=== PATIENT | male | born 1965 | race African-American/Black ===

== ENCOUNTER 2019-12-01 10:53 | Emergency (ER) | payer BC ==
--- OUTSIDE RECORDS SUMMARY | 2019-12-01 11:30 | XMS REPORT | Continuity of Care Document ---
:1965 Author Organization [employer] Care Team Providers Name Role Phone [employer] Unavailable Un available Problems Problem Status Onset Classification Date Comments Sourc e Date Reported HYPERCHOLESTEROLEMIA Active Condition 09/29/2012 [facility] DIABETES, TYPE II Active Condition 09/29/2012 [facility] ARM PAIN, RIGHT Active Condition 09/29/2012 F[facility]ad [facility] ALLERGIC RHINITIS Active Condition 09/29/2012 [facility] Foreskin finding Active Problem 01/13/2019 [facility] (finding) 013 migrated Group from [employer] on 11/17/14. Shoulder joint pain Active Problem 01/13/2019 [facility] (finding) 013 migrated Group from [facility] [employer] on 11/17/14. SHOULDER PAIN, RIGHT Active Condition 09/29/2012 [facility] ROTATOR CUFF TEAR Active Condition 09/29/2012 [facility] BICEPS TENDINITIS Active Condition 09/29/2012 [facility] Diabetes mellitus Active Problem 01/13/2019 Data M H Medical (disorder) migrated Group from [employer] on 11/17/14. Drug therapy finding Active Problem 01/13/2019 Medical (finding) Group Finding of body mass Active Problem 09/18/2018 Medical index (finding) Grou p Hypertensive disorder, Active Problem 01/13/2019 [facility] systemic arterial migrated Gr oup (disorder) from [facility] [employer] on 11/17/14. Medical Active Problem 01/13/2019 Medica l examinations/reports Group status (finding) Mixed hyperlipidemia Active Problem 01/13/2019 Medical (disorder) Group Obesity (disorder) Active Problem 01/13/2019 Medical Group Screening status Active Problem 01/13/2019 Medical (finding) Group Medications Medication Details Route Status Patient Ordering Order Source Instructions Provider Date Levofloxacin 500 mg = 1 tab, Active 500 MG Oral PO, Q24H, X 10 2019 Medic al Tablet day, # 10 tab, 0 Group [Levaquin] Refill(s), Pharmacy: [facility]/pharmacy #[id number] Actos 30 mg, PO, Daily, Active 0 Refill(s) 2019 Medical Group rosuvastatin 20 20 mg = 1 tab, Active 10/13/ M H mg oral tablet PO, Bedtime, # 30 2018 Medical tab, 0 Refill(s) Group pioglitazone 30 30 mg = 1 tab, Active 10/13/ M H mg oral tablet PO, Daily, 0 2018 Medi afia Refill(s) Group 3 ML Insulin 30units, SUB-Q, Active Glargine 100 Bedtime, # 6 mL, 2018 Me dical UNT/ML Pen 3 Refill(s) Group Injector [Basaglar] 24 HR 1 tab, PO, BID, 0 Active dapagliflozin 5 Refill(s) 2018 Medica l MG / Metformin Group hydrochloride 1000 MG Extended Release Oral Tablet [Xigduo] 0.5 ML SUB-Q, 0 Active dulaglutide 1.5 Refill(s) 2018 Medica l MG/ML Prefilled Group Syringe [Trulicity] MELOXICAM 15 MG 1 PO QD Active Matt TABS 2013 [facility] CYMBALTA 60 MG 1 PO BID No [facility] CPEP Longer 2013 [facility] Active Joint SOMA 350 MG 1 PO TID prn Active Ambrosiomon d TABS muscle spasms 2013 [facility] MONTELUKAST per other M.D. Active Ambrosiom ond SODIUM TABS 2013 [facility] GLIPIZIDE XL per other M.D. Active mond [id number] 2013 [facility] CRESTOR TABS per other M.D. Active Ambrosio mond 2013 [facility] PIOGLITAZONE per other M.D. Active mond HCL-METFORMIN 2013 [facility] & HCL 15-500 MG Joint TABS DICLOFENAC per other M.D. Active Ambrosiomo nd SODIUM TBEC 2013 [facility] VICTOZA SOLN per other M.D. Active Ambrosio gagnon 2013 [facility] METFORMIN HCL per other M.D. Active hmond TABS 2013 [facility] VICODIN 5-500 1 PO q 4-6 hours Active R ichmond MG TABS prn pain 2012 Bone & (HYDROCODONE-AC Joint ETAMINOPHEN) A1. [place] Active [facility] Diclofenac 3% 2012 Bone & Baclofen 2% Joint Cyclobenzaprine 2% Lidocaine 2% Bupivicaine 1% cream Apply 1-2 grams to the affected area 3-4 times per day Allergies, Adverse Reactions, Alerts Substance Category Reaction Severity Reaction Status Date Comments S ource type Reported No Known Assertion Drug Medication allergy Medic al Allergies Group Immunizations Immunization Date Given Site Status Last Updated Comments Anastasia rce influenza virus 04/14/2017 completed [place] Medical vaccine, History: At Group inactivated<sup>1 work </sup> Results No Data Provided for This Section Pathology Reports No Data Provided for This Section Diagnostic Reports Report Value Date Source Chest 2 views DX PROCEDURE: Chest Radiograph. 09/15/2018 Ma tianna Smith Clinical Indication: Lump on anterior left upper chest. Comparison: None. FINDINGS: The chest shows normal lung volumes without interstitial or airspace opacities, pleural effusions or pneumothorax. The heart size and pulmonary vasculature are normal. The trachea is midline. There are no clinically significant osseous abnormalities noted. IMPRESSION: 1. No chest radiographic evidence of acute cardi opulmonary disease. [id number] Consultation Notes No Data Provided for This Section Discharge Summaries No Data Provided for This Section History and Physicals No Data Provided for This Section Vital Signs Vital Sign Value Date Comments Source BMI Calculated 36.61 01/10/2019 Medical Gr oup Weight 102.898 01/10/2019 Medical Grou p Height 167.64 cm 01/10/2019 Medical Grou p Systolic (mm Hg) 108 01/10/2019 Medical Group Diastolic (mm Hg) 69 01/10/2019 Medical Group Temperature Oral (F) 97.8 F 01/10/2019 Medi afia Group Heart Rate 66 01/10/2019 Medical Grou p BMI Calculated 35.97 09/15/2018 Medical Gr oup Weight 101.08 09/15/2018 Medical Grou p Height 167.64 cm 09/15/2018 Medical Grou p Heart Rate 106 09/15/2018 Medical Grou p Systolic (mm Hg) 120 09/15/2018 Medical Group Diastolic (mm Hg) 88 09/15/2018 Medical Group BMI Calculated 35.21 10/13/2017 Medical Gr oup Weight 100.455 10/13/2017 Medical Grou p Height 168.91 cm 10/13/2017 Medical Grou p Temperature Oral (F) 98.2 F 10/13/2017 Medi afia Group Respitory Rate 15 10/13/2017 Medical Gr oup Heart Rate 60 10/13/2017 Medical Grou p Systolic (mm Hg) 106 10/13/2017 Medical Group Diastolic (mm Hg) 80 10/13/2017 Medical Group Weight 219 09/26/2012 [facility] Height 66 09/26/2012 [facility] Systolic (mm Hg) 128 09/26/2012 [facility] Diastolic (mm Hg) 72 09/26/2012 [facility] Heart Rate 76 09/26/2012 [facility] Encounters Location Location Encounter Encounter Reason Attending ADM CT Stat us Source Details Type Number For Provider Date Date Visit [place] Office [id number] Jasbir 09/29 09/29 [facility] Office Visit [address] ARITA /[facility] [id number] ELIEL 11/19 [facility] [place] Outpatient [id number] ELIEL 10/[address] [facility] [id number] Eliel 10/13 10/14 [facility]2017 [facility] [place] Outpatient [id number] Samina 09/15 [facility] [place] [facility] Outpatient [id number] NURSE 09/[address] [facility] VISIT /2018 [place] [facility] Outpatient [id number] Samina 09/15 09/16 Family Brittanie /2018 [facility] [place] [facility] Outpatient [id number] NURSE 09/15 09/16 Radiology VISIT /2018 Medical Kimmy Group [facility] Between [id number] 09/15 09/16 Family Visit /2018 [facility] [place] Outpatient [id number] Eliel 01/10 [facility] Luis [facility] Outpatient [id number] Eliel 01/10 01/11 [facility] [place] Procedures No Data Provided for This Section Assessment and Plan No Data Provided for This Section Plan of Care No Data Provided for This Section Social History Social History Date Source Social History TypeResponse 11/20/2015 [facility] [place] Substance Abuse Use: None. Employment/School Status: Employed. Work/School descripti on: Entrepreneur, chemical plant.. Highest education level: Some college. Alcohol Never Smoking Status Never smoker; Exposure to Tobacco Smoke None; Cigarette Smoking Last 365 Days No; Reg Smoking Cessation Counseling No entered on: 01/10/19 Family History No Data Provided for This Section Advance Directives No Data Provided for This Section Functional Status No Data Provided for This Section
--- NOTE | 2019-12-01 12:28 | RAD REPORT ---
EXAM DESCRIPTION: CT - Stone Protocol - 12/01/2019 12:00 pm CLINICAL HISTORY: Abdominal pain. Flank pain COMPARISON: None. TECHNIQUE: Computed axial tomography of the abdomen pelvis was obtained without oral or IV contrast. Lack of IV and oral contrast limits evaluation of solid organs, bowel, and vessels. Coronal reformat jessica images were obtained and reviewed. All CT scans are performed using dose optimization technique as appropriate and may include automated exposure control or mA/KV adjustment according to patient size. FINDINGS: A renal calculus is not seen. An ureteral calculus is not noted. A bladder calculus is not present. The liver, spleen, pancreas and adrenals appear grossly normal There is no evidence of diverticulitis. The appendix appears normal An umbilical hernia contains fat. The neck measures 2 centimeters 3 millimeter nodule right middle lobe IMPRESSION: Negative for a genitourinary calculus 3 millimeter right middle lobe nodule. If the patient is high risk then CT chest in 1 year recommende d per Fleischner guidelines
[2019-12-01] MEDS ORDERED: HYDROCODONE/APAP 7.5/325 MG TAB ONE (12:44)
--- NOTE | 2019-12-01 12:58 | ER ---
Nurse's Notes [facility] Name: Nenita Rahman Age: 54 yrs Sex: Male : 1965 Arrival Date: 12/01/2019 Time: 10:56 Bed 16 Private MD: Diagnosis: Flank Pain Presentation: 11/30 10:59 Chief complaint: Patient states: R side pain x 2-3 days ago. Denies N/V/D. Denies ca1 urinary symptoms. Denies injury to the area. Coronavirus screen: Proceed with normal triage. Patient denies a cough. Patient denies shortness of breath or difficulty breathing. Patient denies measured and/or subjective temperature greater than 100.4F prior to today's visit. Patient denies travel on a cruise ship or to a country the [facility]NOTE 2[place] currently lists as an affected area. Patient denies contact with known and/or suspected case of COVID-19. Ebola Screen: Patient negative for fever greater than or equal to 101.5 degrees Fahrenheit, and additional compatible Ebola Virus Disease symptoms Patient denies exposure to infectious person. Patient denies travel to an Ebola-affected area in the 21 days before illness onset. No symptoms or risks identified at this time. Initial Sepsis Screen: Does the patient meet any 2 criteria? No. Patient's initial sepsis screen is negative. Does the patient have a suspected source of infection? No. Patient's initial sepsis screen is negative. Risk Assessment: Do you want to hurt yourself or someone else? Patient reports no desire to harm self or others. Onset of symptoms was December 01, 2019. 10:59 Method Of Arrival: Ambulatory ca1 10:59 Acuity: JOVANY 3 ca1 Triage Assessment: 11:05 General: Appears in no apparent distress. comfortable, Behavior is calm, cooperative, ca1 appropriate for age. Pain: Complains of pain in anterior aspect of right lateral abdomen and posterior aspect of right lateral abdomen. Historical: - Allergies: 11:05 No Known Allergies; ca1 - Home Meds: 11:05 Basaglar 30 mg daily [Active]; Trulicity 1.5 mg/0.5 mL subcutaneous pnij 0.5 mL once ca1 wkly [Active]; Xigduo XR 5-1,000 mg oral TBph 1 tab twice a day [Active]; montelukast 10 mg oral tab 1 tab once daily [Active]; rosuvastatin 20 mg oral tab 1 tab once daily [Active]; pioglitazone 45 mg oral tab 1 tab once daily [Active]; glipizide 10 mg Oral tab 1 tab 2 times per day [Active]; - PMHx: 11:05 Diabetes - IDDM; High Cholesterol; ca1 - PSHx: 11:05 None; ca1 - Immunization history:: Adult Immunizations up to date. - Social history:: Smoking status: Patient denies any tobacco usage or history of. Screenin:49 Abuse screen: Denies threats or abuse. Denies injuries from another. Nutritional bp screening: No deficits noted. Tuberculosis screening: No symptoms or risk factors identified. Fall Risk None identified. Assessment: 11:05 General: SEE TRIAGE NOTE. bp 12:48 Reassessment: CT RESULTED. VS STABLE ON MONITOR. bp 13:28 Reassessment: PT D/C HOME AMBULATORY, DX WITH FLANK PAIN. bp Vital Signs: 10:59 BP 124 / 89; Pulse 93; Resp 15 S; Temp 97.8(O); Pulse Ox 98% on R/A; Weight 102.06 kg ca1 (R); Height 5 ft. 8 in. (172.72 cm) (R); Pain 10/10; 12:47 BP 114 / 66; Pulse 72; Resp 16; Pulse Ox 97% ; bp 13:28 BP 111 / 65; Pulse 74; Resp 16; Temp 98; Pulse Ox 98% ; bp 10:59 Body Mass Index 34.21 (102.06 kg, 172.72 cm) ca1 ED Course: 10:56 Patient arrived in ED. ag5 10:59 [facility] Ac[facility]-C [facility] kb 10:59 Alonzo Lorenzana MD is Attending Physician. kb 11:01 Triage completed. ca1 11:05 Arm band placed on right wrist. ca1 11:49 Jose Angel Barrera, YANIRA is Primary Nurse. bp 11:49 Patient has correct armband on for positive identification. Bed in low position. Call bp light in reach. Side rails up X2. 12:00 CT Stone Protocol In Process Unspecified. EDMS 13:29 No provider procedures requiring assistance completed. Patient did not have IV access bp during this emergency room visit. Administered Medications: 12:38 Drug: Snow (7.5 mg-325 mg) 1 tabs Route: PO; bp 13:29 Follow up: Response: Pain is decreased bp Outcome: 12:58 Discharge ordered by . marcus 13:29 Discharged to home ambulatory. bp 13:29 Condition: stable 13:29 Discharge instructions given to patient, Instructed on discharge instructions, follow up and referral plans. medication usage, Demonstrated understanding of instructions, follow-up care, medications, Prescriptions given X 1. 13:30 Patient left the ED. bp Signatures: Dispatcher [employer] EDNoni Haywood, Jose Angel Correa, RN RN bp Linda Lopez RN RN [facility] Mahesh [facility] ag5
--- NOTE | 2019-12-01 12:58 | EDPHYS ---
Physician Documentation [facility] Name: Nenita Rahman Age: 54 yrs Sex: Male : 1965 Arrival Date: 12/01/2019 Time: 10:56 Bed 16 Private MD: ED Physician Alonzo Lorenzana HPI: 11/30 12:56 This 54 yrs old Black Male presents to ER via Ambulatory with complaints of Right Side kb Pain. 12:56 The patient complains of pain in the right flank. The pain does not radiate. Onset: The kb symptoms/episode began/occurred 1 week(s) ago. Modifying factors: The symptoms are alleviated by nothing. the symptoms are aggravated by movement. Associated signs and symptoms: The patient has no apparent associated signs or symptoms. Severity of pain: At its worst the pain was moderate in the emergency department the pain is unchanged. The patient has not experienced similar symptoms in the past. The patient has been recently seen by a physician: the ER physician, out of Town. Pt reports right lateral abdominal pain that started a week ago. Was seen at [place] ER had had US and KUB. No acute findings. No abd tenderness. . Historical: - Allergies: 11:05 No Known Allergies; ca1 - Home Meds: 11:05 Basaglar 30 mg daily [Active]; Trulicity 1.5 mg/0.5 mL subcutaneous pnij 0.5 mL once ca1 wkly [Active]; Xigduo XR 5-1,000 mg oral TBph 1 tab twice a day [Active]; montelukast 10 mg oral tab 1 tab once daily [Active]; rosuvastatin 20 mg oral tab 1 tab once daily [Active]; pioglitazone 45 mg oral tab 1 tab once daily [Active]; glipizide 10 mg Oral tab 1 tab 2 times per day [Active]; - PMHx: 11:05 Diabetes - IDDM; High Cholesterol; ca1 - PSHx: 11:05 None; ca1 - Immunization history:: Adult Immunizations up to date. - Social history:: Smoking status: Patient denies any tobacco usage or history of. ROS: 12:55 Constitutional: Negative for fever, chills, and weight loss, Cardiovascular: Negative kb for chest pain, palpitations, and edema, Respiratory: Negative for shortness of breath, cough, wheezing, and pleuritic chest pain, Back: Negative for injury and pain, MS/Extremity: Negative for injury and deformity, Skin: Negative for injury, rash, and discoloration, Neuro: Negative for headache, weakness, numbness, tingling, and seizure. 12:55 Abdomen/GI: Positive for abdominal pain, of the anterior aspect of right lateral abdomen. Exam: 12:55 Constitutional: This is a well developed, well nourished patient who is awake, alert, kb and in no acute distress. Head/Face: Normocephalic, atraumatic. Chest/axilla: Normal chest wall appearance and motion. Nontender with no deformity. No lesions are appreciated. Cardiovascular: Regular rate and rhythm with a normal S1 and S2. No gallops, murmurs, or rubs. Normal PMI, no JVD. No pulse deficits. Respiratory: Lungs have equal breath sounds bilaterally, clear to auscultation and percussion. No rales, rhonchi or wheezes noted. No increased work of breathing, no retractions or nasal flaring. Abdomen/GI: Soft, non-tender, with normal bowel sounds. No distension or tympany. No guarding or rebound. No evidence of tenderness throughout. Back: No spinal tenderness. No costovertebral tenderness. Full range of motion. Skin: Warm, dry with normal turgor. Normal color with no rashes, no lesions, and no evidence of cellulitis. MS/ Extremity: Pulses equal, no cyanosis. Neurovascular intact. Full, normal range of motion. Neuro: Awake and alert, GCS 15, oriented to person, place, time, and situation. Cranial nerves II-XII grossly intact. Motor strength 5/5 in all extremities. Sensory grossly intact. Cerebellar exam normal. Normal gait. Vital Signs: 10:59 BP 124 / 89; Pulse 93; Resp 15 S; Temp 97.8(O); Pulse Ox 98% on R/A; Weight 102.06 kg ca1 (R); Height 5 ft. 8 in. (172.72 cm) (R); Pain 10/10; 12:47 BP 114 / 66; Pulse 72; Resp 16; Pulse Ox 97% ; bp 13:28 BP 111 / 65; Pulse 74; Resp 16; Temp 98; Pulse Ox 98% ; bp 10:59 Body Mass Index 34.21 (102.06 kg, 172.72 cm) ca1 MDM: 11:39 Patient medically screened. kb 12:55 Data reviewed: vital signs, nurses notes. Data interpreted: Pulse oximetry: on room air kb is 97 %. Interpretation: normal. Counseling: I had a detailed discussion with the patient and/or guardian regarding: the historical points, exam findings, and any diagnostic results supporting the discharge/admit diagnosis, radiology results, the need for outpatient follow up, a family practitioner, to return to the emergency department if symptoms worsen or persist or if there are any questions or concerns that arise at home. 11/30 11:49 Order name: CT Stone Protocol; Complete Time: 12:30 kb Administered Medications: 12:38 Drug: Bypro (7.5 mg-325 mg) 1 tabs Route: PO; bp 13:29 Follow up: Response: Pain is decreased bp Disposition: 18:48 Co-signature as Attending Physician, Alonzo Lorenzana MD. ma2 Disposition: 12/01/19 12:58 Discharged to Home. Impression: Flank Pain. - Condition is Stable. - Discharge Instructions: Flank Pain, [id number]. - Prescriptions for Diclofenac Sodium 75 mg Oral Tablet, Delayed Release (E.C.) - take 1 tablet by ORAL route 2 times per day As needed; 30 tablet. - Medication Reconciliation Form, Thank You Letter, Antibiotic Education, Prescription Opioid Use form. - Follow up: Emergency Department; When: As needed; Reason: Worsening of condition. Follow up: Private Physician; When: 2 - 3 days; Reason: Recheck today's complaints, Continuance of care, Re-evaluation by your physician. Signatures: Dispatcher [employer] Noni Botello, DENISE-C Jose Angel Perez RN RN Alonzo Yin MD MD ma2 Linda Lopez RN RN ca1 Corrections: (The following items were deleted from the chart) 13:30 12:58 12/01/2019 12:58 Discharged to Home. Impression: Flank Pain. Condition is Stable. bp Forms are Medication Reconciliation Form, Thank You Letter, Antibiotic Education, Prescription Opioid Use. Follow up: Emergency Department; When: As needed; Reason: Worsening of condition. Follow up: Private Physician; When: 2 - 3 days; Reason: Recheck today's complaints, Continuance of care, Re-evaluation by your physician. kb
[2019-12-01 13:38] VITALS: BP 111/65; TEMP 98; O2SAT 98
== END 2019-12-01 13:30 | disposition home or self-care (01) ==
LOC: ER 10:53
DX: R10.9 Unspecified abdominal pain (principal); E11.9 Type 2 diabetes mellitus without complications; Z79.4 Long term (current) use of insulin; E78.00 Pure hypercholesterolemia, unspecified
CPT/HCPCS: 74176; 76377; 99283